=== PATIENT | female | born 1975 | race Caucasian/White ===

== ENCOUNTER 2023-04-20 09:13 | Emergency (ER) | payer BC, OTHER ==
[2023-04-20] MEDS ORDERED: Cyclobenzaprine 10 MG Tab PO ONE (10:44)
== END 2023-04-20 11:30 | disposition home or self-care (01) ==
LOC: JD.ED 09:13
DX: M54.50 Low back pain, unspecified (principal)
CPT/HCPCS: 72100; 99283; A9270